=== PATIENT | female | born 1995 | race Two or more races ===

== ENCOUNTER 2017-07-02 14:23 | Emergency (ER) | payer BC ==
--- NOTE | 2017-07-02 15:51 | ER Document Report ---
ED ENT - General Chief Complaint: Sore Throat Stated Complaint: SORE THROAT Time Seen by Provider: 07/02/17 15:06 Information source: Patient TRAVEL OUTSIDE OF THE [place] IN LAST 30 DAYS: No - HPI Notes: 21 yr old female presents today from (tested positive for influenza, negative for strep and mono) for complaints of left sided ST with exudates, difficulty swallowing, left lymphadenopathy x 1 day. Pain 9/10, throbbing and constant. Tried salt water gargle without full relief. Denies fevers, but reports chills. Hard to swallow foods, eating soft foods. Reports headache and fatigue. Denies hx of mono. Better with cold fluids, worse with eating hot foods. Denies any rashes. - Related Data Allergies/Adverse Reactions: No Known Allergies Allergy (Verified 07/02/17 14:25) Past Medical History - General Information source: Patient - Social History Smoking Status: Never Smoker Frequency of alcohol use: Rare Drug Abuse: None Family History: None Patient has suicidal ideation: No Patient has homicidal ideation: No Renal/ Medical History: Denies: Hx Peritoneal Dialysis Review of Systems - Review of Systems Constitutional: See HPI EENT: Throat pain, Difficulty swallowing, Throat swelling. denies: Mouth pain, Mouth swelling, Dental problem, Vertigo Cardiovascular: No symptoms reported Respiratory: No symptoms reported Gastrointestinal: No symptoms reported Genitourinary: No symptoms reported Female Genitourinary: No symptoms reported Musculoskeletal: No symptoms reported Skin: No symptoms reported -: Yes All other systems reviewed and negative Physical Exam - Vital signs Vitals: Temp Pulse Resp BP Pulse Ox 98.1 F 118 H 16 129/84 H 99 07/02/17 14:48 07/02/17 14:48 07/02/17 14:48 07/02/17 14:48 07/02/17 14:48 - General General appearance: Appears well In distress: None - HEENT Ears: Normal External canal: Normal Tympanic membrane: Bulging, Serous effusion Sinus: Normal Nasal: Normal Mouth/Lips: Normal Mucous membranes: Normal Pharynx: Erythema, Exudate, Post nasal drainage, Tonsillar hypertrophy, Uvular edema - on left., Other - XAM: tympanic membranes are normal appearing with pearly color, normal-appearing landmarks and normal light reflex. Hearing is grossly intact. The nasal mucosa is moist. The septum is midline. There is no evidence of septal hematoma. The turbinates are without abnormality. No obvious abnormalities to the lips. The teeth are unremarkable. The gingivae are without any obvious evidence of infection. The oral mucosa is moist and pink. There are no obvious masses to the hard or soft palate. The uvula deviated slightly right. The salivary glands appear unremarkable. The tongue is midline. The posterior pharynx is with erythema or exudate. left enlarged tonsil +4, with noted exudate. noted left adenopathy Neck: Normal, Lymphadenopathy - on left - Respiratory Respiratory status: No respiratory distress Chest status: Nontender Breath sounds: Normal Chest palpation: Normal - Cardiovascular Rhythm: Regular Murmur: Yes Pulses: Normal: Radial Normal capillary refill: Yes - Abdominal Inspection: Normal Distension: No distension Tenderness: Nontender Organomegaly: No organomegaly - Neurological Neuro grossly intact: Yes Cognition: Normal Carney Coma Scale Verbal: Oriented - Skin Skin Temperature: Warm Skin Moisture: Dry Skin Color: Normal Course - Re-evaluation Re-evalutation: Rechecked the patient who is resting comfortably. On re-exam, patient is symptomatically improved. Discussed the results of the radiology as well as the diagnosis at great length. Discussed the need to return to the ER for any new or worsening sx. Patient understands to take the Rx as directed. All questions answered. Patient comfortable with the decision to go home. After performing a Medical Screening Examination, I estimate there is LOW risk for ACUTE CORONARY SYNDROME, PULMONARY EMBOLI, RESPIRATORY FAILURE, SEPSIS OR MENINGITIS, thus I consider the discharge disposition reasonable. I have reevaluated this patient multiple times and no significant life threatening changes are noted. The patient and I have discussed the diagnosis and risks, and we agree with discharging home with close follow-up. We also discussed returning to the Emergency Department immediately if new or worsening symptoms occur. We have discussed the symptoms which are most concerning (e.g., changing or worsening pain, trouble swallowing or breathing, neck stiffness, fever) that necessitate immediate return. 07/02/17 18:24 - Vital Signs Vital signs: Temp Pulse Resp BP Pulse Ox 98.1 F 118 H 16 129/84 H 99 07/02/17 14:48 07/02/17 14:48 07/02/17 14:48 07/02/17 14:48 07/02/17 14:48 - Laboratory Result Diagrams: 07/02/17 16:35 07/02/17 16:35 Laboratory results interpreted by me: 07/02/17 07/02/17 16:35 16:35 WBC 12.6 H Lymphocytes % 10.5 L Monocytes % 13.7 H Absolute Neutrophils 9.5 H Absolute Monocytes 1.7 H C-Reactive Protein 60.0 H - Diagnostic Exam Neck Type of test: CT scan with contrast - : Inflamed tonsils without discrete intra tonsillar or peritonsillar abscess. Mild cervical adenopathy. Dictated by: SHANICE PRUITT MD [id number] CC: ALENA KOROMA, PC MAINTENANCE TECHNICIAN-C > < Electronically signed by SHANICE PRUITT MD in OV> 07/02/17 1725 Discharge - Discharge Clinical Impression: Tonsillar exudate, Influenza Disposition: HOME, SELF-CARE Instructions: Acetaminophen, Influenza ([facility]) [id number], Strep Throat ([facility]) Additional Instructions: Take antibiotics and prednisone as directed. Saltwater gargles. Change toothbrush in 2 days.avised to return to the ER if any signs or symptoms became worse. Take [id number] Motrin and Tylenol as needed for any fevers or pain. Follow up with primary care within 1-2 days. All questions and concerns answered by this provider . Patient/family states would follow plan of care and agreed to plan of care. Patient was discharged home and off unit without incident. Please excuse any errors in this document was done by vesta dictation. Prescriptions: Amoxicillin/Potassium Clav [Augmentin 875-125 Tablet] 1 each PO BID #20 tablet Prednisone 20 mg PO BID #10 tablet Forms: Return to Work
[2017-07-02] MEDS ORDERED: KETOROLAC TROMETHAMINE INJ/PF 30 MG/1 ML SDV IV ONE (15:56)
[2017-07-02] MEDS ORDERED: DEXAMETHASONE SOD PHOS INJ 10 MG/1 ML VIAL IV ONE (16:29)
[2017-07-02 17:06] LABS: ABSOLUTE LYMPHOCYTES (AUTO) 1.3 10^3/uL (0.5-4.7); ABSOLUTE MONOCYTES (AUTO) 1.7 10^3/uL (0.1-1.4); ABSOLUTE NEUT (AUTO) 9.5 10^3/uL (1.7-8.2); BASOPHILS % (AUTO) 0.2 % (0-2); EOSINOPHILS % (AUTO) 0.1 % (0-6); HEMOGLOBIN 13.2 g/dL (12.0-15.5); LYMPHOCYTES % (AUTO) 10.5 % (13-45); MEAN CORPUSCULAR HEMOGLOBIN 29.1 pg (27.0-33.4); MEAN CORPUSCULAR HGB CONC 34.6 g/dL (32.0-36.0); MEAN CORPUSCULAR VOLUME 84 fl (80-97); MONOCYTES % (AUTO) 13.7 % (3-13); PLATELET COUNT 206 10^3/uL (150-450); RED BLOOD COUNT 4.52 10^6/uL (3.72-5.28); RED CELL DISTRIBUTION WIDTH 12.3 % (11.5-14.0); SEGMENTED NEUTROPHILS % (AUTO) 75.5 % (42-78); TOTAL CELLS COUNTED % (AUTO) 100 %; WHITE BLOOD COUNT 12.6 10^3/uL (4.0-10.5)
--- NOTE | 2017-07-02 17:25 | RADIOLOGY REPORT (SQ) ---
EXAM DESCRIPTION: CT SOFT TISSUE NECK WITH COMPLETED DATE/TIME: 07/02/2017 5:06 pm REASON FOR STUDY: r/o peristonsillar abscess COMPARISON: None. TECHNIQUE: Post IV contrasted scanning from skull base through lung apices with review of bone, soft tissue and lung windows. Reconstructed coronal and sagittal MPR images reviewed. All images stored on PACS. All CT scanners at this facility use dose modulation, iterative reconstruction, and/or weight based d osing when appropriate to reduce radiation dose to as low as reasonably achievable (ALARA). [facility]: Dose Right [facility]: CareDose [facility]: Dose Right [facility]: Teradose 4D [facility]: [employer] CONTRAST TYPE AND DOSE: contrast/concentration: Isovue 370.00 mg/ml; Total Contrast Delivered: 75.0 ml; Total Saline Delivered: 45.0 ml RENAL FUNCTION: None required. The patient is less than 50 years old. RADIATION DOSE: CT Rad equipment meets quality standard of care and radiation dose reduction techniq ues were employed. CTDIvol: 13.9 mGy. DLP: 423 mGy-cm. . LIMITATIONS: None. FINDINGS: SKULL BASE: Inferior brain parenchyma in the field of view unremarkable MAJOR SALIVARY GLANDS: No solid or cystic masses. No inflammatory changes. LYMPHADENOPATHY: There is mild enlargement of the jugulodigastric lymph nodes bilaterally. Right jug ulodigastric node 1.7 x 1 cm axial image 43. Left jugulodigastric node 2 x 1.7 cm in size axial imag e 46 MUCOSAL MASSES OR ASYMMETRY: Bilaterally enlarged pharyngeal tonsils, without discrete intra tonsilla r or peritonsillar abscess. The left tonsil is larger than the right, there is moderate pharyngeal a irway narrowing from tonsillar tissue. These changes are best shown on axial images 32 through 44. LARYNX/CORDS: No abnormal findings. VASCULAR STRUCTURES: The major vessels are patent. LUNG APICES: Clear. BONES: Intact. THYROID: Normal size. No masses. PARANASAL SINUSES: Clear. OTHER: No other significant finding. IMPRESSION: Inflamed tonsils without discrete intra tonsillar or peritonsillar abscess. Mild cervic al adenopathy. TECHNICAL DOCUMENTATION: JOB ID: [id number] Quality ID # [id number]: Final reports with documentation of one or more dose reduction techniques (e.g., Au tomated exposure control, adjustment of the mA and/or kV according to patient size, use of iterative reconstruction technique) 2010 [employer]- All Rights Reserved
[2017-07-02 17:29] LABS: ALANINE AMINOTRANSFERASE 29 U/L (9-52); ALBUMIN 4.5 g/dL (3.5-5.0); ALKALINE PHOSPHATASE 73 U/L (38-126); ANION GAP 16 (5-19); ASPARTATE AMINO TRANSFERASE 30 U/L (14-36); BILIRUBIN,DIRECT 0.3 mg/dL (0.0-0.4); BILIRUBIN,TOTAL 0.4 mg/dL (0.2-1.3); BLOOD UREA NITROGEN 8 mg/dL (7-20); CALCIUM 9.7 mg/dL (8.4-10.2); CARBON DIOXIDE 26 mmol/L (22-30); CHLORIDE 98 mmol/L (98-107); GLUCOSE 82 mg/dL (75-110); POTASSIUM 3.9 mmol/L (3.6-5.0); SODIUM 139.5 mmol/L (137-145); TOTAL PROTEIN 7.7 g/dL (6.3-8.2)
[2017-07-02 19:44] VITALS: BP 118/72
== END 2017-07-02 19:42 | disposition home or self-care (01) ==
LOC: ER 14:23
DX: J11.1 Influenza due to unidentified influenza virus with other respiratory manifestations (principal)
CPT/HCPCS: 99283; 96374; 96375; 36415; 85025; 86140; 80053; 83605; 70491; J1885; J1100